=== PATIENT | male | born 1965 | race Caucasian/White ===

== ENCOUNTER 2019-05-23 02:02 | Emergency (ER) | payer MEDICAID ==
[~2019-05-23] VITALS: Ht 175.3 cm; Wt 81.6 kg
[2019-05-23 04:08] VITALS: BP 129/81
[2019-05-23] MEDS ORDERED: TETANUS-DIPTH-ACEL PERTUSSIS 0.5ML SYRG IM ONE (04:15)
[2019-05-23] MEDS ORDERED: cefTRIAXone SOD 1,000 MG VL IM ONE (04:15)
[2019-05-23] MEDS ORDERED: KETOROLAC TROMETH 60MG/2ML VIAL IM ONE (04:15)
== END 2019-05-23 05:12 | disposition home or self-care (01) ==
LOC: ER 02:04
DX: S61.411A Laceration without foreign body of right hand, initial encounter (principal); W26.9XXA Contact with unspecified sharp object(s), initial encounter; Y93.89 Activity, other specified; Y92.89 Other specified places as the place of occurrence of the external cause; Y99.8 Other external cause status
CPT/HCPCS: 73130; 90471; 90715; 96372; 99284; J0696; J1885